=== PATIENT | male | born 1975 | race Hispanic/Latino ===

== ENCOUNTER 2025-01-29 04:56 | Emergency (ER) | payer SELFPAY ==
[~2025-01-29] VITALS: Ht 170.2 cm; Wt 86.2 kg
--- NOTE | 2025-01-29 05:41 | ERN ---
General Chief Complaint: Abdominal Pain Stated Complaint: ABD PAIN Time Seen by MD: 05:38 Source: patient History of Present Illness Initial Comments Patient is a healthy 49-year-old male who had a few beers and some large burritos for dinner and has been unable to sleep because of unremitting epigastric pain. He says this is the 1st time this has ever happened to him. He took Pepto-Bismol but it did not help. Timing/Duration: 4-6 hours Allergies: Coded Allergies: No Known Allergies (Unverified Allergy, Unknown, 01/29/25) Past Medical History Past Medical History: No Pertinent History Past Surgical History: None ROS Dictation Review of systems is negative. No shortness of breath no chest pain. No change in urination no change in bowel movements. Physical Exam General Appearance: (+) moderate distress Orientation: (+) oriented x 3 Eye: bilateral eye normal inspection, bilateral eye PERRL, bilateral eye EOMI Ear, Nose, Throat: (+) hearing grossly normal, (+) normal ENT inspection Neck: (+) normal inspection, (+) supple Respiratory: (+) chest non-tender, (+) lungs clear, (+) well ventilated Heart: (+) regular, (+) no gallop Vascular: (+) no edema Gastrointestinal: (+) soft, (+) bowel sound present Results Laboratory and Microbiology Lab and Micro Result Laboratory Tests Test 01/29/25 06:48 White Blood Count 13.9 K/uL (4.8-10.8) H Red Blood Count 4.65 MIL/uL (4.50-6.20) Hemoglobin 15.0 g/dL (14.0-18.0) Hematocrit 41.4 % (42-54) L Mean Corpuscular Volume 89.0 fL (79-99) Mean Corpuscular Hemoglobin 32.3 pg (27.0-33.0) Mean Corpuscular Hemoglobin Concent 36.2 g/dL (32.0-36.0) H Red Cell Distribution Width 12.4 % (11.0-15.5) Platelet Count 254 K/uL (130-400) Mean Platelet Volume 9.3 fL (7.5-10.5) Immature Granulocyte % (Auto) 0.8 % (0-1) Neutrophils (%) (Auto) 84.5 % (40.0-77.0) H Lymphocytes (%) (Auto) 8.9 % (21.0-51.0) L Monocytes (%) (Auto) 5.4 % (3.0-13.0) Eosinophils (%) (Auto) 0.3 % (0.0-8.0) Basophils (%) (Auto) 0.1 % (0.0-5.0) Neutrophils # (Auto) 11.8 K/uL (1.8-7.7) H Lymphocytes # (Auto) 1.2 K/uL (1.0-4.8) Monocytes # (Auto) 0.8 K/uL (0.1-1.0) Eosinophils # (Auto) 0.04 K/uL (0.00-0.70) Basophils # (Auto) 0.02 K/uL (0.00-0.20) Absolute Immature Granulocyte (auto 0.11 K/uL (0-1) Nucleated Red Blood Cells 0.0 % (0.0-0.19) Sodium Level 140 mmol/L (136-145) Potassium Level 3.4 mmol/L (3.5-5.1) L Chloride Level 104 mmol/L (101-111) Carbon Dioxide Level 28 mmol/L (21-32) Blood Urea Nitrogen 9 mg/dL (7-18) Creatinine 1.0 mg/dL (0.5-1.3) Glomerular Filtration Rate Calc 92 mL/min (>90) Random Glucose 131 mg/dL (70-105) H Total Calcium 8.5 mg/dL (8.5-10.1) Total Bilirubin 0.6 mg/dL (0.2-1.0) Aspartate Amino Transf (AST/SGOT) 18 U/L (10-37) Alanine Aminotransferase (ALT/SGPT) 29 U/L (12-78) Alkaline Phosphatase 50 U/L (50-136) Troponin I High Sensitivity 6 ng/L (4-75) Total Protein 7.7 g/dL (6.0-8.3) Albumin 3.8 g/dL (3.5-5.0) Lipase 33 U/L (16-77) MDM Given the patient's history and symptoms I will start off with a very simple GI cocktail. The patient said that the GI cocktail has helped but that he still has his epigastric pain. His abdominal exam is benign Callejas's sign is negative. I will order a CBC chemistry panel lipase and a CT of his abdomen and pelvis with IV contrast. Patient handed off at shift change stable exam and workup, EKG blood work and CT scan of the abdomen are stable pain is not resolved vital signs stable stable for discharge. MDM: Differential diagnosis: Rationale: Tests considered and ordered secondary to shared decision making include: Previous outside records reviewed: Old ER visits. Risk of complication and/or morbidity or mortality of patient management: None Medications-Per medication reconciliation Need for hospitalization: Patient does not meet criteria for hospitalization. Need for emergency major/minor surgery: No There are no social concerns with this patient. Prescription drug management Prescriptions will include symptomatic care Patient's prior external medical records from other ER visits were reviewed by me as indicated. Prior testing and results from previous visits were reviewed. Prior tests were taken into account with medical decision making and resource utilization, independent historian/historians were used to obtain complete medical history. I independently interpreted the test that were performed, results were reviewed by me and considered findings on radiology if ordered. Medical management and examination interpretation discussions were had by me with other qualified healthcare professionals as indicated for the patient's care. ED Course Orders Procedure Category Date Status Time Lidocaine Hcl 2% PHA 01/29/25 Complete Viscous (Lidocaine Hcl 06:00 Mag/Alum/Simeth 30ml PHA 01/29/25 Complete (Maalox Plus 30ml) 06:00 Dicyclomine Hcl PHA 01/29/25 Complete (Bentyl 10mg/5ml 06:00 Ct Abdomen/Pelvis CT 01/29/25 Resulted W/Wo Contras 06:29 Cbc With Differential LAB 01/29/25 In Process 06:29 Comprehensive LAB 01/29/25 Complete Metabolic Panel 06:29 Lipase LAB 01/29/25 Complete 06:29 12 Lead Ekg Tracing- EKG 01/29/25 Complete Technical 06:30 Troponin I High LAB 01/29/25 Complete Sensitivity 06:30 Lactated Ringers PHA 01/29/25 Complete 1000ml (Lactated 06:55 Ketorolac PHA 01/29/25 Complete Tromethamine 30mg/Ml 07:00 Iohexol (Omnipaque) PHA 01/29/25 Complete 07:21 Current Medications Medications (Trade) Dose Ordered Sig/Mj Route PRN Reason Start Time Stop Time Status Last Admin Dose Admin Al Hydroxide/Mg Hydroxide (MAALox PLUS 30ML) 30 ml ONCE ONCE PO 01/29/25 06:00 01/29/25 06:01 DC 01/29/25 05:48 Dicyclomine HCl (Bentyl 10mg/5ml Syrup) 10 mg ONCE ONCE PO 01/29/25 06:00 01/29/25 06:01 DC 01/29/25 05:48 Iohexol (Omnipaque) 75 ml STK-MED ONCE IV 01/29/25 07:21 01/29/25 07:21 DC Ketorolac Tromethamine (toRADol) 30 mg ONCE ONCE IVP 01/29/25 07:00 01/29/25 07:01 DC 01/29/25 07:28 Lactated Ringer's (Lactated Ringers 1000ml) 1,000 ml BOLUS STAT IV 01/29/25 06:55 01/29/25 06:58 DC 01/29/25 07:28 Lidocaine HCl (Lidocaine HCl 2% Viscous) 10 ml ONCE ONCE PO 01/29/25 06:00 01/29/25 06:01 DC 01/29/25 05:48 Vital Signs Date Time Temp Pulse Resp B/P (MAP) Pulse Ox O2 Delivery O2 Flow Rate FiO2 01/29/25 06:23 98.2 76 19 162/98 98 Room Air* 0 01/29/25 05:13 67 20 152/102 98 Room Air* 0 01/29/25 04:58 97.0 68 20 168/106 97 Room Air DX & DISP Disposition: Discharge Departure Impression: Primary Impression: Acute abdominal pain Additional Impression: Cholelithiasis Condition: Stable Scripts Dicyclomine HCl (Bentyl) 20 Mg Tab 1 TAB PO BID for irritable bowel symptoms for 10 Days, #20 TAB 0 Refills Prov: JEANETTE ALBRECHT MD 01/29/25 Referrals: SELF,REFERRAL (PCP) TALIB LANGE MD January 29, 2025 05:41 JEANETTE ALBRECHT MD January 29, 2025 09:10
[2025-01-29] MEDS: MAG/ALUM/SIMETH 30 ML UDCUP PO ONE (05:48)
[2025-01-29] MEDS: DICYCLOMINE HCL 10 MG/5 ML ML PO ONE (05:48)
[2025-01-29] MEDS: LIDOCAINE HCL 2% VISCOUS 15 ML UDCUP PO ONE (05:48)
--- NOTE | 2025-01-29 06:38 | NUR ---
no labs, ct pending
--- NOTE | 2025-01-29 06:44 | EKG ---
[facility] Test Date: 2025-01-29 Test Time: 06:41:38 Pat Name: TREV MARTINI Department: ED Room: Gender: M Registered Nurse Midwife: [id number] : 1975 Requested By: TALIB LANGE Order Number: [id number] Reading MD: Teresa Krause Measurements Intervals [place] Rate: 71 P: 29 MT: 161 QRS: -44 QRSD: 100 T: 10 QT: 398 QTc: 434 Interpretive Statements Sinus rhythm Left axis deviation No previous ECG available for comparison Electronically Signed On 01-29-2025 11:56:52 CDT by Teresa Krause Please click the below link to view image of tracing.
[2025-01-29 07:01] LABS: BASOPHILS # (AUTO) 0.02 K/uL (0.00-0.20); BASOPHILS % (AUTO) 0.1 % (0.0-5.0); EOSINOPHILS # (AUTO) 0.04 K/uL (0.00-0.70); EOSINOPHILS % (AUTO) 0.3 % (0.0-8.0); HEMATOCRIT 41.4 % (42-54); IMMATURE GRANULOCYTE ABSOLUTE 0.11 K/uL (0-1); LYMPHOCYTES # (AUTO) 1.2 K/uL (1.0-4.8); LYMPHOCYTES % (AUTO) 8.9 % (21.0-51.0); MEAN CORPUSCULAR HEMOGLOBIN 32.3 pg (27.0-33.0); MEAN CORPUSCULAR HGB CONC 36.2 g/dL (32.0-36.0); MONOCYTES # (AUTO) 0.8 K/uL (0.1-1.0); MONOCYTES % (AUTO) 5.4 % (3.0-13.0); NEUTROPHILS # (AUTO) 11.8 K/uL (1.8-7.7); NEUTROPHILS % (AUTO) 84.5 % (40.0-77.0); PLATELET COUNT (AUTO) 254 K/uL (130-400); RED BLOOD CELL COUNT(AUTO) 4.65 MIL/uL (4.50-6.20); RED CELL DISTRIBUTION WIDTH 12.4 % (11.0-15.5); WHITE BLOOD COUNT (AUTO) 13.9 K/uL (4.8-10.8)
[2025-01-29 07:16] LABS: ALBUMIN 3.8 g/dL (3.5-5.0); BILIRUBIN,TOTAL 0.6 mg/dL (0.2-1.0); POTASSIUM 3.4 mmol/L (3.5-5.1); TOTAL PROTEIN, SERUM 7.7 g/dL (6.0-8.3)
[2025-01-29] MEDS ORDERED: IOHEXOL-350 75 ML VIAL IV ONE (07:21)
[2025-01-29] MEDS: LACTATED RINGERS 1000ML IV STA (07:28)
[2025-01-29] MEDS: ketOROlac 30MG VIAL (30MG/ML) IVP ONE (07:28)
--- NOTE | 2025-01-29 08:11 | HMCIMG ---
CT ABDOMEN WITHOUT CONTRAST. CT PELVIS WITHOUT CONTRAST. INDICATION: Epigastric abdominal pain; sonographic imaging should be the first step in the diagnostic algorithm given the patient's history, and was not provided prior to this study. TECHNIQUE: Routine transaxial imaging using 5 mm slice thickness through the abdomen and pelvis without the administration of IV contrast. Thin slice reconstructions are also provided. Coronal and sagittal reformatted images acquired for interpretation. CT was performed with one or more of the following dose reduction techniques: Automated exposure control, adjustment of the mA and/or kV according to patient size, or use of iterative reconstruction technique. COMPARISON: None FINDINGS: ON NONCONTRAST IMAGING: ABDOMEN: Heart size is normal. Visible lung bases are clear. No abnormal renal calcifications, hydronephrosis, perinephric inflammation, or proximal hydroureter detected. The liver is normal in size and smooth in contour without biliary duct dilation. The spleen is normal in size and attenuation. A few partially-calcific gallbladder neck stones. The pancreas appears normal without pancreatic duct dilation. The adrenal glands appear normal. No significant abdominal, retrocrural or retroperitoneal adenopathy noted. No evidence for intra-abdominal free air or organized fluid collection. No aortic aneurysmal dilation identified. PELVIS: No abnormal calcifications within the urinary bladder or distal ureters. No evidence for free air or organized pelvic fluid collection. No significant pelvic adenopathy detected. Visualized small and large bowel loops appear unremarkable. Terminal ileum appears unremarkable. The appendix appears normal. Visible osseous structures are intact. IMPRESSION: Sonographic imaging was not provided prior to this study. Cholelithiasis.
[2025-01-29 09:09] VITALS: BP 137/88; PULSE 78; RESP 17; TEMP 98.4; O2SAT 99
[2025-01-29] MEDS ORDERED: DICY20TA2 PO (09:09)
--- NOTE | 2025-01-29 09:14 | NUR ---
PT GIVEN INSTRUCTIONS VERBALIZED UNDERSTANDING, IV REMOVED CATHETER INTACT. PT DRIVEN HOME BY BROTHER.
== END 2025-01-29 09:15 | disposition home or self-care (01) ==
LOC: EDH 04:56
DX: K80.20 Calculus of gallbladder without cholecystitis without obstruction (principal)
CPT/HCPCS: 99285; 74178; 96374; 96361; 84484; 80053; 83690; 85025; 36415; 93005; J1885; J7120; Q9967